=== PATIENT | male | born 1995 | race Caucasian/White ===

== ENCOUNTER 2017-03-23 16:48 | Emergency (ER) | payer BC ==
[2017-03-23 16:53] VITALS: BP 132/71
--- NOTE | 2017-03-23 19:10 | ED ---
Head Injury - HPI Summary HPI Summary: Pt here w/ laceration to posterior scalp earlier today. Was sliding down a hand railing and fell - landed on back on wooden steps. Denies LOC, RAMIREZ, change in vision, nausea/vomiting, neck pain, confusion, photosensitivity, phonophobia, numbness, tingling, weakness. H/o head injury w/ concussion - reports he has none of the same sx - feels fine - only came in because after cleaning his wound he realized it was deep and still bleeding. Tetanus is UTD. No other complaints. - History Of Current Complaint Chief Complaint: EDLacSutureRecheck Stated Complaint: FALL HEAD LAC Time Seen by Provider: 03/23/17 18:31 Hx Obtained From: Patient Pain Intensity: 4 - Allergies/Home Medications Allergies/Adverse Reactions: Allergies Allergy/AdvReac Type Severity Reaction Status Date / Time No Known Allergies Allergy Verified 03/23/17 16:51 PMH/Surg Hx/FS Hx/Imm Hx Previously Healthy: Yes Endocrine/Hematology History: Denies: Hx Anticoagulant Therapy, Hx Blood Disorders Infectious Disease History: No Infectious Disease History: Denies: Traveled Outside the [place] in Last 30 Days - Social History Occupation: Student Lives: With Family - roommate Alcohol Use: Weekly Hx Substance Use: No Substance Use Type: Reports: None Hx Tobacco Use: No Smoking Status (MU): Never Smoked Tobacco Review of Systems Constitutional: Negative Negative: Fatigue Eyes: Negative Negative: Photophobia, Blurred Vision, Diplopia ENT: Negative Negative: Dental Pain Negative: Chest Pain Negative: Shortness Of Breath Gastrointestinal: Negative Negative: Vomiting, Nausea Positive: no symptoms reported Musculoskeletal: Negative Negative: Arthralgia, Myalgia, Decreased ROM Skin: Other - see HPI Neurological: Negative Negative: Headache, Weakness, Paresthesia, Numbness, Syncope Psychological: Normal All Other Systems Reviewed And Are Negative: Yes Physical Exam Triage Information Reviewed: Yes Vital Signs On Initial Exam: Initial Vitals Temp Pulse Resp BP Pulse Ox 97.8 F 54 18 132/71 100 03/23/17 16:51 03/23/17 16:51 03/23/17 16:51 03/23/17 16:51 03/23/17 16:51 Vital Signs Reviewed: Yes Appearance: Positive: Well-Appearing, No Pain Distress, Well-Nourished Skin: Positive: Warm - 1.75cm linear lac over Lt occipital region - no lexus bleeding Head/Face: Positive: Normal Head/Face Inspection Eyes: Positive: Normal, EOMI, DAVID, Conjunctiva Clear ENT: Positive: Hearing grossly normal Respiratory/Lung Sounds: Positive: Breath Sounds Present Cardiovascular: Positive: Normal Musculoskeletal: Positive: Normal, Strength/ROM Intact Neurological: Positive: Normal, Sensory/Motor Intact, Alert, Oriented to Person Place, Time, CN Intact II-III Psychiatric: Positive: Normal Procedures - Laceration/Wound Repair 1 Location: head - posterior scalp Description: Linear Length, Depth and Shape: 1.75cm x 3mm Betadine Prep?: Yes Irrigated w/ Saline (ccs): 50 - iodine solution Laceration/Wound Explored: clean Closure: Single Layer, [place] #__ - 2 Layer Closure?: No Sterile Dressing Applied?: Yes - triple anbx ointment Diagnostics - Vital Signs Vital Signs Temp Pulse Resp BP Pulse Ox 03/23/17 16:51 97.8 F 54 18 132/71 100 - Laboratory Lab Statement: Any lab studies that have been ordered have been reviewed, and results considered in the medical decision making process. Head Injury Course/Dx - Diagnoses Provider Diagnoses: Occipital scalp laceration Discharge - Discharge Plan Condition: Stable Disposition: HOME Patient Education Materials: Laceration (ED), Staple Care (ED) Referrals: Non Staff,Doctor [Primary Care Provider] - Additional Instructions: Keep wound clean - gently wash daily and apply triple antibiotic ointment after each cleaning Follow-up with PCP in 7 days for wound check and staple removal *If you develop fever, chills, purulent drainage, excessive bleeding, return to ED *If you develop headache, vomiting, visual change, neck pain, numbness, tingling , weakness, return to ED
== END 2017-03-23 19:17 | disposition home or self-care (01) ==
LOC: ED 16:48
DX: S01.01XA Laceration without foreign body of scalp, initial encounter (principal); W19.XXXA Unspecified fall, initial encounter; Y93.89 Activity, other specified; Y92.9 Unspecified place or not applicable
CPT/HCPCS: 99281